=== PATIENT | female | born 1965 | race Caucasian/White ===

== ENCOUNTER 2018-06-22 20:35 | Emergency (ER) | payer SELFPAY ==
[~2018-06-22] VITALS: Ht 152.4 cm; Wt 67.3 kg
[~2018-06-22 20:35] MED LIST: FAMOTIDINE20 MG PO; IBUPROFEN800 MG PO; MEDROL DOSEPAK4 MG PO; MOTRIN800 MG PO; NICOTINE PATCH1 EAC2 TD; NORCO 5/3251 TABLET PO; OXYCODONE HCL5 MG PO; TYLENOL EXTRA500 MG PO; TYLENOL325 M1 PO
[2018-06-22 21:30] LABS: BASOPHIL (%) 0.4 % (0-1); BASOPHIL COUNT 0.1 K/uL (0-0.1); EOSINOPHIL (%) 0.6 % (0-5); EOSINOPHIL COUNT 0.1 K/uL (0-0.3); HEMOGLOBIN 16.3 G/DL (11.9-15.5); IMMATURE GRANULOCYTE (%) 0.6 % (0.0-0.7); LYMPHOCYTE (%) 15.6 % (15-42); LYMPHOCYTE COUNT 2.5 K/uL (1.0-2.8); MCH 31.6 PG (29.0-34.0); MCHC 34.7 G/DL (30.0-36.0); MCV 91.1 FL (83-99); MONOCYTE (%) 5.9 % (3-12); MONOCYTE COUNT 0.9 K/uL (0-0.8); NEUTROPHIL (%) 76.9 % (45-76); NEUTROPHIL COUNT 12.1 K/uL (1.8-6.4); PLATELET COUNT 298 K/uL (156-360); RBC DIS.WIDTH-CV 13.1 % (11.8-14.6); RBC DIS.WIDTH-SD 44.2 % (39-53); RED BLOOD COUNT 5.16 M/uL (3.80-5.20); WHITE BLOOD COUNT 15.8 K/uL (4.1-10.2)
[2018-06-22 21:39] LABS: PTT 27.4 SEC (25-37)
[2018-06-22 21:42] LABS: CHLORIDE 102 mEq/L (99-109); POTASSIUM 3.3 mEq/L (3.7-5.4); SODIUM 139 mEq/L (136-147)
[2018-06-22 21:44] LABS: GLUCOSE 112 mg/dL (70-99)
[2018-06-22 21:48] LABS: CREATININE 0.7 mg/dL (0.6-1.3); GFR ESTIMATE (CALCULATED) > 59 mL/min/
[2018-06-22 21:49] LABS: UREA NITROGEN (BUN) 7 mg/dL (9-23)
[2018-06-22 21:55] LABS: TROP-I INTERPRETATION NEGATIVE; TROPONIN-I < 0.01 ng/mL (0.0-0.30)
[2018-06-23 00:48] VITALS: BP 111/71
== END 2018-06-23 00:49 | disposition home or self-care (01) ==
LOC: EME 20:35
PROVIDERS: Emergency Medicine
DX: E86.0 Dehydration (principal); R55 Syncope and collapse; R20.0 Anesthesia of skin; R51 Headache; R05 Cough; Z88.0 Allergy status to penicillin
CPT/HCPCS: 70450; 80048; 84484; 85025; 85610; 85730; 93005; 99281; 99284; J1885; J7030